=== PATIENT | male | born 1940 | race Hispanic/Latino ===

== ENCOUNTER 2018-01-21 03:23 | Observation (INO) | payer OTHER ==
--- NOTE | 2018-01-21 04:19 | ED PDOC ---
HPI: Male Pain Chief Complaint (Provider): bleeding from penis History Per: Patient History/Exam Limitations: no limitations Onset/Duration Of Symptoms: Days (1) Current Symptoms Are (Timing): Still Present Additional Complaint(s): 78 y/o male brought in by EMS for evaluation of bleeding from penis x 1 day. Patient states he has not been able to urinate since Saturday morning, notes blood to be intermittently coming from penis starting Saturday afternoon. Associated suprapubic fullness. Patient admits to similar episode a few weeks ago, states he had a procedure and bleeding stopped but is unsure what procedure. Denies fever, nausea/vomiting, chest pain, shortness of breath, palpitations, changes in bowel movements, penile trauma. Urologist: Dr. Lake Lino <Hannah Zaman - Last Filed: 01/21/18 06:00> <Mile Cordon - Last Filed: 01/22/18 14:20> Time Seen by Provider: 01/21/18 03:31 Chief Complaint (Nursing): Male Genitourinary Supervising Attending Note - Supervising Attending Note The Documented history was done by the: Physician Automatic Furnace Operator, Attending Physician The documented physical exam was done by the: Physician Automatic Furnace Operator, Attending Physician - Attestation: I have personally seen and examined this patient.: Yes I have fully participated in the care of the patient.: Yes I have reviewed all pertinent clinical information, including history, physical exam and plan: Yes - Notes: Notes:: Dribbling hematuria on exam with distension of lower abdomen. Bedside ultrasound demonstrated distended bladder with debris within the bladder. No available 3-way heaton in hospital that could pass through meatus. RN placed straight heaton with large amount of drainage of hematuria. Stat consult Urology Dr Lucas for anticipation of obstruction due to clot and inability to irrigate due to lack of 3-way. Admitted to Dr Titus [facility]. <Mile Cordon - Last Filed: 01/22/18 14:20> Past Medical History Reviewed: Historical Data, Nursing Documentation, Vital Signs Vital Signs: Last Vital Signs Temp 98.6 F 01/21/18 03:29 Pulse 100 H 01/21/18 03:29 Resp 19 01/21/18 03:29 BP 135/76 01/21/18 03:29 Pulse Ox 100 08/28/18 03:29 - Medical History PMH: Benign Prostatic Hyperplasia, Diabetes Denies: Chronic Kidney Disease - Surgical History Surgical History: Coronary Stent (x4 or 5 as per patient) - Family History Family History: States: Unknown Family Hx <Hannah Zaman - Last Filed: 01/21/18 06:00> Vital Signs: Last Vital Signs Temp 98.6 F 01/22/18 10:15 Pulse 80 01/22/18 10:15 Resp 18 01/22/18 10:15 BP 100/55 L 01/22/18 10:15 Pulse Ox 100 01/21/18 18:13 <Mile Cordon - Last Filed: 01/22/18 14:20> - Home Medications Home Medications: Ambulatory Orders Medication Instructions Recorded Clopidogrel [Plavix] 75 mg PO DAILY 03/01/17 Sitagliptin Phos/Metformin HCl 1 tab PO BID 03/01/17 [Janumet 50-500 mg Tablet] Aspirin [Ecotrin] 81 mg PO DAILY 01/21/18 Dulaglutide [Trulicity] 0.75 mg SC QWK 01/21/18 - Allergies Allergies/Adverse Reactions: Allergies Allergy/AdvReac Type Severity Reaction Status Date / Time Penicillins Allergy SWELLING Verified 01/21/18 06:10 Sulfa (Sulfonamide Allergy SWELLING Verified 01/21/18 06:10 Antibiotics) Review of Systems ROS Statement: Except As Marked, All Systems Reviewed And Found Negative Genitourinary Male: Positive for: Other (blood coming from penis) <Hannah Zaman - Last Filed: 01/21/18 06:00> Physical Exam - Reviewed Nursing Documentation Reviewed: Yes Vital Signs Reviewed: Yes - Physical Exam Appears: Positive for: Well, Non-toxic, No Acute Distress Head Exam: Positive for: ATRAUMATIC, NORMAL INSPECTION, NORMOCEPHALIC Skin: Positive for: Normal Color Eye Exam: Positive for: Normal appearance ENT: Positive for: Normal ENT Inspection Cardiovascular/Chest: Positive for: Regular Rate, Rhythm Respiratory: Positive for: Normal Breath Sounds Gastrointestinal/Abdominal: Positive for: Bowel Sounds, Soft, Tenderness ( suprapubic pressure) Male Genital Exam: Positive for: other (intermittent bleeding coming from meatus ; no clots noted in plastic bag patient came in with. exam flag signalman Iliana Vargas RN ) Extremity: Positive for: Normal ROM Neurologic/Psych: Positive for: Alert, Oriented (x3) <Hannah Zaman - Last Filed: 01/21/18 06:00> - Laboratory Results Result Diagrams: 01/21/18 04:39 01/21/18 04:39 - ECG O2 Sat by Pulse Oximetry: 100 - Progress ED Course And Treament: labs, urine 4:[address] Diop, covering for Dr. Lino; recommends inserting heaton and have patient f/up in office at 9am Will insert heaton and do CBI Unable to insert 3-way heaton due to resistance Straight cath inserted with return of occult hematuria IV fluids, IV cipro ordered Dr. Cordon discussed case with Dr. Lucas, Urology on-call; recommends NPO, requested materials from OR for bedside procedure Dr. Cordon discussed case with Dr. Titus, medical service on-call, for admission <Hannah Zaman - Last Filed: 01/21/18 06:00> - Laboratory Results Result Diagrams: 01/21/18 20:30 01/21/18 04:39 - Critical Care Total Time (In Min): 30 Documented Critical Care: Time excludes all time spent performint seperately billable procedures <Mile Cordon - Last Filed: 01/22/18 14:20> Disposition - Disposition Disposition Time: 06:00 <Hannah Zaman - Last Filed: 01/21/18 06:00> <Mile Cordon - Last Filed: 01/22/18 14:20> - Clinical Impression Clinical Impression: Penile bleeding, Urinary retention - Disposition Condition: FAIR
[2018-01-21 04:40] LABS: BASO % 0.1 % (0.0-2.0); HEMOGLOBIN 12.2 g/dL (12.0-18.0); LYMPH # 0.5 K/uL (1.0-4.3); LYMPH % 3.7 % (20.0-40.0); MEAN CELL VOLUME 75.2 fl (80.0-94.0); MEAN CORPUSCULAR HEMOGLOBIN 24.3 pg (27.0-31.0); MEAN CORPUSCULAR HGB CONC 32.3 g/dL (33.0-37.0); MEAN PLATELET VOLUME 10.7 fl (7.2-11.7); MONO # 0.5 K/uL (0.0-0.8); MONO % 3.6 % (0.0-10.0); NEUT # 12.9 K/uL (1.8-7.0); NEUT % 92.6 % (50.0-75.0); PLATELET COUNT 216 K/uL (130-400); RBC 5.01 Mil/uL (4.40-5.90); RED CELL DISTRIBUTION WIDTH 19.2 % (11.5-14.5); WHITE BLOOD COUNT 13.9 K/uL (4.8-10.8)
[2018-01-21 04:48] LABS: ALB/GLOB RATIO 1.3 (1.0-2.1); ALT/SGPT 24 U/L (21-72); AST/SGOT 30 U/L (17-59); BLOOD UREA NITROGEN 26 mg/dl (9-20); CALCIUM 9.4 mg/dL (8.4-10.2); GFR NON-AFRICAN AMERICAN > 60
[2018-01-21 04:58] LABS: INR 1.2; PROTHROMBIN TIME 13.8 Seconds (9.8-13.1)
[2018-01-21 05:00] LABS: PARTIAL THROMBOPLASTIN TIME 33.9 Seconds (25.6-37.1)
[2018-01-21] MEDS ORDERED: Sodium Chloride 0.9% 500 ML IV STA (06:00)
[2018-01-21] MEDS ORDERED: Ciprofloxacin 400mg/200ml D5W 400 MG/200 ML BAG IV ONE (06:01)
[2018-01-21 06:34] LABS: ANISOCYTOSIS SLIGHT; BANDS 2 % (0-2); LYMPHOCYTE 4 % (20-50); MONOCYTE 4 % (0-10); NEUTROPHIL 90 % (42-75); PLATELET ESTIMATE NORMAL (NORMAL); TOTAL CELLS COUNTED 100
--- NOTE | 2018-01-21 08:24 | RAD ---
Date of service: 01/21/2018 HISTORY: admit COMPARISON: No prior. FINDINGS: LUNGS: The lungs are well inflated and clear. PLEURA: No significant pleural effusion identified, no pneumothorax apparent. CARDIOVASCULAR: Normal. OSSEOUS STRUCTURES: No significant abnormalities. VISUALIZED UPPER ABDOMEN: Normal. OTHER FINDINGS: None. IMPRESSION: No active pulmonary disease.
--- NOTE | 2018-01-21 09:24 | CARD ---
APPROVED REPORT Date of service: 01/21/2018 <Conclusion> Normal sinus rhythm Normal ECG
[2018-01-21 11:59] LABS: BASO % 0.1 % (0.0-2.0); EOS % 0.1 % (0.0-4.0); HEMOGLOBIN 10.4 g/dL (12.0-18.0); LYMPH # 1.1 K/uL (1.0-4.3); LYMPH % 7.9 % (20.0-40.0); MEAN CELL VOLUME 74.7 fl (80.0-94.0); MEAN CORPUSCULAR HEMOGLOBIN 24.3 pg (27.0-31.0); MEAN CORPUSCULAR HGB CONC 32.5 g/dL (33.0-37.0); MEAN PLATELET VOLUME 10.2 fl (7.2-11.7); MONO # 1.1 K/uL (0.0-0.8); MONO % 8.4 % (0.0-10.0); NEUT # 11.4 K/uL (1.8-7.0); NEUT % 83.5 % (50.0-75.0); RBC 4.29 Mil/uL (4.40-5.90); RED CELL DISTRIBUTION WIDTH 19.4 % (11.5-14.5); WHITE BLOOD COUNT 13.7 K/uL (4.8-10.8)
[2018-01-21] MEDS ORDERED: cefTRIAXone (Rocephin) 1 gm Inj ONE (14:27)
[2018-01-21] MEDS ORDERED: Ciprofloxacin 400mg/200ml D5W 400 MG/200 ML BAG IVPB ONE (14:29)
[2018-01-21] MEDS ORDERED: Midazolam 2 MG/2 ML VIAL ONE (14:34)
[2018-01-21] MEDS ORDERED: Propofol 10 mg/ml Inj (20 ML) ONE (14:34)
[2018-01-21] MEDS ORDERED: Sodium Chloride 0.9% 1,000 ML IV ONE (14:40)
[2018-01-21] MEDS ORDERED: ePHEDrine 50 mg/ml Inj ONE (15:07)
[2018-01-21] MEDS ORDERED: Lactated Ringer's 1,000 ML IV ONE (15:20)
[2018-01-21] MEDS ORDERED: HYDROmorphone 1 mg/ml ISec IVP PRN (16:08)
[2018-01-21] MEDS ORDERED: Lactated Ringer's 1,000 ML IV SCH (16:15)
[2018-01-21 20:58] LABS: RBC 3.32 Mil/uL (4.40-5.90); WHITE BLOOD COUNT 14.6 K/uL (4.8-10.8)
[2018-01-21 20:59] LABS: HEMOGLOBIN 7.9 g/dL (12.0-18.0); MEAN CELL VOLUME 75.6 fl (80.0-94.0); MEAN CORPUSCULAR HEMOGLOBIN 23.9 pg (27.0-31.0); MEAN CORPUSCULAR HGB CONC 31.7 g/dL (33.0-37.0); RED CELL DISTRIBUTION WIDTH 19.2 % (11.5-14.5)
[2018-01-21] MEDS: Insulin Regular 100 units/ml SC SCH (21:53)
--- NOTE | 2018-01-22 03:03 | OP ---
Copied To: Noel Lucas MD Attending MD: Noel Lucas MD PROCEDURE DATE: 01/21/2018 PREOPERATIVE DIAGNOSES: Gross hematuria with clots, urinary retention. POSTOPERATIVE DIAGNOSES: Gross hematuria with clots, urinary retention. PROCEDURES PERFORMED: Cystoscopy with evacuation of clots and cauterization of bladder wall. DESCRIPTION OF PROCEDURE: The patient was placed on the operating room table in a dorsal lithotomy position and given general anesthesia. The area of the groin was draped and prepped. At this time, using a #24 continuous flow resectoscope, I entered into the bladder. I evacuated at least one unit worth of blood clots from the bladder. Once I got all the clots and I looked back, there was diffuse bleeding from the areas of the bladder wall and especially some active bleeders at the area of the bladder neck. I cauterized these areas. There was still some oozing, but not nearly at the rate it was in the beginning. I then removed the cystoscope and started continuous bladder irrigation via 24 three-way Wasserman catheter. The patient was taken from the operating room in good condition. Noel Lucas MD
[2018-01-22] MEDS: Insulin Regular 100 units/ml SC SCH ×4 (08:20→23:20)
--- NOTE | 2018-01-22 08:47 | HP ---
Copied To: Vamsi Titus MD Attending MD: Vamsi Titus MD CHIEF COMPLAINT: Blood in the urine. HISTORY OF PRESENT ILLNESS: This is an 78-year-old male, known case of bladder cancer, who had two weeks ago a procedure to remove bladder cancer and everything was pretty good. The patient was seen by urologist at that time and the patient was feeling okay. Then, the patient started having bleeding in the urine again, so the patient went back to the urologist who suggested the patient to stop anticoagulation, aspirin and Plavix, which the patient stopped and the patient stopped bleeding again; but the patient started again bleeding since yesterday afternoon and it did not stop and started increasing. The patient was brought to the emergency room and was admitted for further management. REVIEW OF SYSTEMS: Positive for bleeding in the urine. Review of systems otherwise is negative for headache, dizziness, syncope, loss of consciousness, chest pain, shortness of breath, nausea, vomiting, diarrhea, constipation, or any new joint or extremity pain. Review of systems of all other organ system is unremarkable. PAST MEDICAL HISTORY: Significant for diabetes, BPH, bladder cancer, coronary artery disease, status post stent. PAST SURGICAL HISTORY: Remarkable for bladder cancer surgery, cystoscopies, and coronary artery stents. PERSONAL HISTORY: The patient is currently nonsmoker, nondrinker, and no substance abuse. MEDICATIONS: The patient is on aspirin, Plavix, Metformin, tramadol. ALLERGIES: THE PATIENT IS ALLERGIC TO PENICILLIN AND SULFA. FAMILY HISTORY: Noncontributory. PHYSICAL EXAMINATION: GENERAL: Well-built, well-nourished 78-year-old male, in no acute distress. VITAL SIGNS: Temperature afebrile, pulse 78, respirations 18, blood pressure 122/60, and saturation 100%. HEENT: Pupils reacting to light. No JVD. No thyromegaly. No lymphadenopathy. No nystagmus. Normocephalic, atraumatic skull. HEART: S1 and S2 normal and regular. No significant murmur, gallop, or rub is heard. LUNGS: Shows good bilateral air exchange. No rales or rhonchi. ABDOMEN: Soft, nontender. No organomegaly. Bowel sounds are present and normal. He has no sign of acute abdomen. No rigidity. No rebound. GENITOURINARY: External genitalia is appropriate per the patient's age. The patient has a indwelling Wasserman catheter with gross blood. EXTREMITIES: No edema. No calf swelling. No tenderness. No acute ischemia. SIEBEL ARCHITECT: The patient is alert, awake, and oriented x3. There is no sign of any acute gross focal motor or sensory neurological deficit. DIAGNOSTIC DATA: Available diagnostic data revealed WBC 13.9, hemoglobin 12.2, hematocrit 37.6, and platelets 216. PT 13.8, PTT is 33.9, and INR is 1.2. Sodium 130, potassium 4.4, chloride 101, bicarbonate 22, BUN 26, and creatinine 1. SMA-12 is unremarkable. Chest x-ray is clear. EKG shows normal sinus rhythm without any acute ST-T changes. ADMITTING IMPRESSION: Hematuria, bladder cancer, benign prostatic hypertrophy, coronary artery disease, type-2 diabetes with hyperglycemia. PLAN: As ordered. Case and plan discussed with the patient. Vamsi Titus MD
[2018-01-22 15:55] LABS: HEMOGLOBIN 8.7 g/dL (12.0-18.0); MEAN CELL VOLUME 78.2 fl (80.0-94.0); MEAN CORPUSCULAR HEMOGLOBIN 26.6 pg (27.0-31.0); RBC 3.26 Mil/uL (4.40-5.90); WHITE BLOOD COUNT 9.6 K/uL (4.8-10.8)
--- NOTE | 2018-01-22 19:00 | CP.PCM.PN ---
Subjective - Date & Time of Evaluation Date of Evaluation: 01/22/18 Time of Evaluation: 18:58 - Subjective Subjective: UROLOGY POD#1 urine clear off CBI. Pt post w2 units transfusion form the acute blood loss. PLan to rermove heaton today and if urine remains clear will OK disch in am Objective - Vital Signs/Intake and Output Vital Signs (last 24 hours): Temp Pulse Resp BP Pulse Ox 98.9 F 74 18 113/52 L 97 01/22/18 16:26 01/22/18 16:26 01/22/18 16:26 01/22/18 16:26 01/22/18 16:26 Intake and Output: 01/22/18 01/22/18 06:59 18:59 Intake Total 583 301 Output Total 2950 Balance -2367 301 - Medications Medications: Current Medications Lactated Ringer's (Lactated Ringer's) 1,000 mls @ 100 mls/hr IV .Q10H ENRRIQUE Insulin Human Regular (Humulin R) 0 units SC ACHS ENRRIQUE PRN Reason: Protocol Last Admin: 01/22/18 17:26 Dose: 5 units Morphine Sulfate (Morphine) 2 mg IVP Q4 PRN PRN Reason: Pain, severe (8-10) Last Admin: 01/21/18 13:16 Dose: 2 mg Ondansetron HCl (Zofran Inj) 4 mg IVP Q4 PRN PRN Reason: Nausea/Vomiting - Labs Labs: 01/22/18 15:30 01/21/18 04:39 PT 13.8 Seconds (9.8-13.1) H 01/21/18 04:53 INR 1.2 01/21/18 04:53 APTT 33.9 Seconds (25.6-37.1) 01/21/18 04:53
[2018-01-23 00:28] VITALS: RESP 20
--- NOTE | 2018-01-23 06:13 | PN ---
Copied To: Vamsi Titus MD Attending MD: Vamsi Titus MD DATE: 01/22/2018 SUBJECTIVE: The patient seen and examined. Interim events noted. Consults and procedure by Urology noted and appreciated. The patient remains in regular medical floor with bladder irrigation. The patient feels okay. No chest pain. No shortness of breath, a little bit of discomfort due to irrigation catheter in the penis, but no significant pain. PHYSICAL EXAMINATION: GENERAL: The patient is in no acute distress. VITAL SIGNS: Stable. HEART: S1 and S2. Normal and regular. LUNGS: Good bilateral air exchange. ABDOMEN: Soft, nontender. EXTREMITIES: No edema. No calf swelling. No tenderness. No acute ischemia. WAREHOUSE INCENTIVE SELECTOR: Exam is essentially unchanged. GENITOURINARY: Irrigation catheter is draining clear urine without any gross blood. DIAGNOSTIC DATA: Available diagnostic data reviewed. Hemoglobin has . The patient did receive blood transfusion and currently he is hemodynamically stable. ASSESSMENT AND PLAN: Overall, the patient's sutures stopped bleeding and clinically improving, although significant drop in hemoglobin, which will be addressed by blood transfusion. Plan as ordered. Case and plan discussed with the patient. Vamsi Titus MD
[2018-01-23 06:34] LABS: HEMOGLOBIN 8.3 g/dL (12.0-18.0); MEAN CELL VOLUME 79.8 fl (80.0-94.0); MEAN CORPUSCULAR HEMOGLOBIN 26.4 pg (27.0-31.0); MEAN CORPUSCULAR HGB CONC 33.1 g/dL (33.0-37.0); RBC 3.15 Mil/uL (4.40-5.90); RED CELL DISTRIBUTION WIDTH 20.1 % (11.5-14.5); WHITE BLOOD COUNT 7.1 K/uL (4.8-10.8)
[2018-01-23] MEDS: Insulin Regular 100 units/ml SC SCH ×2 (06:56→11:57)
[2018-01-23 07:02] LABS: ALB/GLOB RATIO 1.4 (1.0-2.1); ALBUMIN 2.8 g/dL (3.5-5.0); ALT/SGPT 23 U/L (21-72); AST/SGOT 15 U/L (17-59); BLOOD UREA NITROGEN 23 mg/dl (9-20); CALCIUM 8.4 mg/dL (8.4-10.2); GFR NON-AFRICAN AMERICAN > 60
[2018-01-23 07:45] VITALS: BP 113/59; PULSE 62; TEMP 97.8; O2SAT 99
--- NOTE | 2018-01-23 12:00 | CP.PCM.PCO ---
Assessment/Plan - Assessment/Plan Assessment (Free Text): Pt stable, voiding clear yellow urine. Seen and cleared for d/c home by Dr. Lucas and Dr. Titus. Per Dr. Titus, pt to resume ASA and Plavix since pt has cardiac stents. Pt states he will f/u with Dr. Lino his private doctor on Saturday to have blood work done. Pt to f/u with Dr. Lucas in 1 week
--- NOTE | 2018-01-23 14:36 | PN ---
Copied To: Vamsi Titus MD Attending MD: Vamsi Titus MD DATE: 01/23/2018 SUBJECTIVE: The patient is seen and examined. Interim events noted. The patient remains in regular medical floor. Bladder irrigation was denies any specific complaints. No chest pain. No shortness of breath. PHYSICAL EXAMINATION: GENERAL: The patient is in no acute distress. VITAL SIGNS: Stable. HEART: S1 and S2. Normal and regular. LUNGS: Good bilateral air exchange. ABDOMEN: Soft, nontender. EXTREMITIES: No edema. No calf swelling. No tenderness. No acute ischemia. WHEEL OF FORTUNE DEALER: Exam is essentially unchanged. GENITOURINARY: The patient does not have any urinary bleeding. DIAGNOSTIC DATA: Available diagnostic data reviewed. Hemoglobin is stable without any further drop. ASSESSMENT AND PLAN: Overall, the patient is medically stable. Plan as ordered. Case and plan discussed with the patient. Vamsi Titus MD
== END 2018-01-23 14:37 | disposition home or self-care (01) ==
LOC: H.ER 03:23 → H.ERHOLD 06:05 → H.MEDSURG1 17:56
PROVIDERS: ADMIT Internal Medicine; ATTEND Internal Medicine
DX: N32.89 Other specified disorders of bladder (principal); R31.0 Gross hematuria; N40.1 Benign prostatic hyperplasia with lower urinary tract symptoms; R33.8 Other retention of urine; E11.65 Type 2 diabetes mellitus with hyperglycemia; Z85.51 Personal history of malignant neoplasm of bladder; I25.10 Atherosclerotic heart disease of native coronary artery without angina pectoris; Z79.02 Long term (current) use of antithrombotics/antiplatelets; Z79.82 Long term (current) use of aspirin; Z95.5 Presence of coronary angioplasty implant and graft; Z88.0 Allergy status to penicillin; Z88.2 Allergy status to sulfonamides
CPT/HCPCS: 36415; 36430; 52001; 71045; 80053; 82948; 85025; 85027; 85610; 85730; 86850; 86900; 86920; 93005; 96360; 96374; 99285; G0378; J0744; J1170; J2001; J2250; J2270; J2704; J3010; J7030; J7040; J7120; P9051